=== PATIENT | female | born 1955 | race Caucasian/White ===

== ENCOUNTER → 2016-04-16 | Outpatient (CLI) | payer MEDICARE, OTHER ==
[~2016-04-16] MED LIST: ADVAIR DIS1 PUFF/DOS IH; ALLEGRA DPS180 MG PO; ASPIRIN PO; CELEBREX100 MG PO; CLONAZEPAM0.25 MG PO; DIPYRIDAMOLE PO; DULCOLAX10 MG PR; ENULOSE10 GM/15 M PO; FIBER CAPS PO; FIBER500 MG PO; FLONASE 0.05% D16 GM NS; FLOVENT DISKU100 MCG IH; GINKGO BILOBA30 MG PO; GLUCOPHAGE-DPS500 MG PO; LAMICTAL DPS100 MG PO; NEURONTIN DPS100 MG PO; PRISTIQ50 MG PO; PROAIR HFA8.5 GM IH; REPATHA SY140 MG/1 M IM; STOOL SOFTENER100 MG PO; SYMMETREL-DPS100 MG PO; SYNTHROID112 MCG PO; TRILIPIX135 MG PO; TYLENOL DPS325 MG PO; VITAMIN E1000 UNI3 PO; ZANAFLEX4 MG PO
== END | disposition home or self-care (01) ==
LOC: RAD.S 07:33
DX: Z12.31 Encounter for screening mammogram for malignant neoplasm of breast (principal)

== ENCOUNTER 2016-06-11 14:36 | Day surgery (SDC) | payer MEDICARE, OTHER | END 2016-06-11 18:28 | disposition home or self-care (01) | DX: T18.128A Food in esophagus causing other injury, initial encounter (principal); I10 Essential (primary) hypertension; E66.9 Obesity, unspecified; E11.9 Type 2 diabetes mellitus without complications; Z90.49 Acquired absence of other specified parts of digestive tract; Z79.899 Other long term (current) drug therapy; Z98.51 Tubal ligation status ==

== ENCOUNTER 2016-07-18 12:13 | Emergency (ER) | payer MEDICARE, OTHER ==
--- NOTE | 2016-07-24 09:21 | ER ---
ADMIT: 07/18/2016 RM/LOC: ER [facility] MR#: [id number] [address] [facility] [id number] [place], [place] [id number] ROGER MITCHELL [address] [facility] [address] [place] [address] Emergency Room Report SEX: F AGE: 61 : 1955 DATE: 07/18/2016 ADDENDUM: CHIEF COMPLAINT: Unable to swallow. HISTORY OF PRESENT ILLNESS: This is a 61-year-old who had a similar episode about 2 weeks ago. It sounds like she had an EGD done and resolved the issues. She does have a followup appointment with Dr. Kaba next . Yesterday she said she was trying eat a chicken sandwich and had difficulty swallowing at that time. Today, she was eating a hamburger and chicken nuggets and felt like something got stuck. By the time she arrives, I did have her drink some water. She is able to swallow on her own. I told her no meat until she sees Dr. Kaba. In fact, she needs to follow a very soft diet until she sees him. CLINICAL IMPRESSION: Dysphagia. DISPOSITION: Stable at discharge and will follow up with Dr. Kaba as scheduled. PEPE Florez / Jonathon Ferguson MD / myahl JOB #: [id number] CC: Jonathon Ferguson MD, Attending Physician Coby Venegas MD, Family Physician
== END 2016-07-18 13:30 | disposition home or self-care (01) ==
LOC: ER 12:13
DX: R13.10 Dysphagia, unspecified (principal); J45.909 Unspecified asthma, uncomplicated; Z98.51 Tubal ligation status

== ENCOUNTER 2016-07-24 06:27 | Day surgery (SDC) | payer MEDICARE, OTHER ==
[~2016-07-24] VITALS: Ht 160 cm; Wt 101.4 kg
--- NOTE | 2016-07-24 15:55 | NUR ---
Received SAD person referal from [facility]. Attempted to contact pt. No answer, voice mail message left.
--- NOTE | 2016-07-30 09:10 | OR ---
ADMIT: 07/24/2016 RM/LOC: [facility] MR#: [id number] [address] [facility] [address] [place], [place] [id number] STEPHENROGER MARIE [address] [facility] [address] [place], [place] [address] Operative/Delivery Room Report SEX: F AGE: 61 : 1955 SURGERY DATE: 07/24/2016 SURGEON: Mata Kaba MD PREOPERATIVE DIAGNOSES: 1. Rectal bleeding. 2. Dysphagia. POSTOPERATIVE DIAGNOSES: 1. Esophagitis with hiatal hernia. 2. Internal hemorrhoids. PROCEDURE: 1. Esophagogastroduodenoscopy with biopsy. 2. Complete colonoscopy. ANESTHESIA: IV general. DESCRIPTION OF PROCEDURE: The patient was taken to the endoscopy suite and placed left side down on her hospital cart. A bite-block was placed and IV sedation was established. The upper endoscope was advanced through the oropharynx into the esophagus without difficulty. The scope was pushed under visualization of the stomach. Air was used to insufflate the stomach. The pylorus was intubated. The 1st and 2nd portions of the duodenum were examined and appeared normal. The scope was withdrawn to the stomach. The antrum, body, and fundus appeared normal. On retroflexion of the scope, there was a moderate-sized hiatal hernia. The scope was withdrawn to the gastroesophageal junction where there was inflammatory change, but no evidence of stricture. Biopsies were obtained. The remainder of the esophageal mucosa appeared normal upon withdrawal of the scope. Next, a rectal exam was performed. There were no palpable abnormalities. The flexible colonoscope was advanced under direct visualization through the entire colon to the level of the cecum. The cecum was identified by its anatomic landmarks in the ileocecal valve. Care was taken upon withdrawal of the scope to examine mucosa of the colon. The cecum, ascending colon, transverse colon, and descending colon were normal in appearance without inflammatory change, mass, or other abnormality. The scope was withdrawn to the rectum and this demonstrated internal hemorrhoids without active bleeding. Air was suctioned. The patient tolerated the procedure well and transferred to the recovery area in stable condition. Mata Kaba MD/ ozzy JOB #: [id number] CC: Mata Kaba, Attending Physician Coby Venegas, Family Physician
--- NOTE | 2016-07-30 09:44 | NUR ---
Attempted to contact pt re: SAD referral. No answer, voice mail message left.
== END 2016-07-24 12:03 | disposition home or self-care (01) ==
LOC: SSS 06:27
PROC: 0DB48ZX Excision of Esophagogastric Junction, Via Natural or Artificial Opening Endoscopic, Diagnostic (ICD-10-PCS; principal; 2016-07-24)
PROC: 0DJD8ZZ Inspection of Lower Intestinal Tract, Via Natural or Artificial Opening Endoscopic (ICD-10-PCS; principal; 2016-07-24)
DX: K64.8 Other hemorrhoids (principal); K22.70 Barrett's esophagus without dysplasia; K21.0 Gastro-esophageal reflux disease with esophagitis; K44.9 Diaphragmatic hernia without obstruction or gangrene; E78.5 Hyperlipidemia, unspecified; G47.30 Sleep apnea, unspecified; F31.9 Bipolar disorder, unspecified; E11.9 Type 2 diabetes mellitus without complications; Z86.73 Personal history of transient ischemic attack (TIA), and cerebral infarction without residual deficits; Z88.8 Allergy status to other drugs, medicaments and biological substances; Z90.49 Acquired absence of other specified parts of digestive tract; Z98.51 Tubal ligation status; Z98.890 Other specified postprocedural states